=== PATIENT | male | born 1995 | race Caucasian/White ===

== ENCOUNTER 2021-11-28 01:28 | Emergency (ER) | payer BC ==
[2021-11-28] MEDS ORDERED: Albuterol/Ipratropium 3.0-0.5 MG/3 ML Neb Soln NEB ONE (01:58)
== END 2021-11-28 03:55 | disposition home or self-care (01) ==
LOC: FB.ED 01:28
DX: J45.901 Unspecified asthma with (acute) exacerbation (principal); Z20.822 Contact with and (suspected) exposure to COVID-19
CPT/HCPCS: 36415; 85025; 86140; 94640; 99282; 99285; J7620; U0002